=== PATIENT | female | born 1975 | race Caucasian/White ===

== ENCOUNTER → 2019-10-13 | Outpatient (CLI) | payer MEDICAID, OTHER | LOC: M OUTALCOH 08:20 | PROVIDERS: ATTEND Psychiatry & Neurology Addiction Medicine | DX: Z03.89 Encounter for observation for other suspected diseases and conditions ruled out (principal) ==

== ENCOUNTER 2019-11-11 09:59 | Outpatient (RCR) | payer MEDICAID | END 2019-11-27 | LOC: M OUTALCOH 09:59 | PROVIDERS: ATTEND Psychiatry & Neurology Addiction Medicine | DX: Z03.89 Encounter for observation for other suspected diseases and conditions ruled out (principal); Z72.0 Tobacco use ==

== ENCOUNTER → 2021-07-19 | Outpatient (CLI) | payer OTHER ==
[~2021-07-19] MED LIST: ISOVUE-370 76% 100ML VIAL As Ordered ONE
== END ==
LOC: M RADPRO 11:12
PROVIDERS: ATTEND Obstetrics & Gynecology
DX: N97.9 Female infertility, unspecified (principal)
CPT/HCPCS: 58340; 74740; Q9967

== ENCOUNTER → 2022-03-01 | Outpatient (REF) | payer OTHER ==
[2022-03-01 22:33] LABS: APPEARANCE, URINE MANUAL HAZY (CLEAR); COLOR, URINE MANUAL YELLOW (YELLOW)
[2022-03-01 22:34] LABS: BILIRUBIN, URINE MANUAL NEGATIVE (NEGATIVE); BLOOD URINE MANUAL TRACE (NEGATIVE); GLUCOSE, URINE (UA) MANUAL NEGATIVE (NEGATIVE); KETONE, URINE MANUAL NEGATIVE (NEGATIVE); LEUKOCYTE ESTERASE, URINE MAN POSITIVE (NEGATIVE); NITRITE, URINE MANUAL NEGATIVE (NEGATIVE); PROTEIN, URINE MANUAL NEGATIVE (NEGATIVE); UROBILINOGEN, URINE MANUAL NORMAL (NORMAL)
[2022-03-01 22:44] LABS: BACTERIA, URINE LARGE AMOUNT; RBC, URINE 15-20 /hpf (0-3); SQUAMOUS EPITHELIAL CELL URINE LARGE AMOUNT /hpf (SMALL AMT); WBC, URINE TNTC /hpf (0-3)
[2022-03-01 22:45] LABS: MUCUS, URINE MOD AMOUNT (NEGATIVE)
[2022-03-01 22:46] LABS: HYALINE CAST, URINE NONE SEEN /lpf (0-1)
== END ==
LOC: M LAB REF 22:24
PROVIDERS: ATTEND Physician Assistant Medical
DX: N39.0 Urinary tract infection, site not specified (principal)

== ENCOUNTER → 2022-03-26 | Outpatient (REF) | payer OTHER | LOC: M LAB REF 22:04 | PROVIDERS: ATTEND Physician Assistant Medical | DX: J02.9 Acute pharyngitis, unspecified (principal) ==

== ENCOUNTER 2022-08-23 03:05 | Inpatient (IN) | payer OTHER ==
[~2022-08-23] VITALS: Ht 162.6 cm; Wt 65.0 kg
[2022-08-23] MEDS ORDERED: CHARCOAL ACTIVATED LIQUID 25GM/120ML BTL PO ONE (04:00)
[2022-08-23 05:41] LABS: BASO # 0.1 10^3/uL (0.0-0.2); BASO % 0.7 % (0.0-1.0); EOS # 0.1 10^3/uL (0.0-0.5); HEMATOCRIT 36.7 % (36.0-47.0); HEMOGLOBIN 12.5 g/dl (12.0-15.5); LYMPH # 2.9 10^3/uL (1.5-5.0); LYMPH % 26.6 % (24.0-44.0); MEAN CORPUSCULAR HEMOGLOBIN 31.8 pg (27.0-33.0); MEAN CORPUSCULAR HGB CONC 34.1 g/dl (32.0-36.5); MEAN CORPUSCULAR VOLUME 93.4 fl (80.0-96.0); MONO # 0.7 10^3/uL (0.0-0.8); MONO % 6.7 % (2.0-8.0); NEUTROPHILS # 6.9 10^3/uL (1.5-8.5); NEUTROPHILS % 64.7 % (36.0-66.0); PLATELET COUNT, AUTOMATED 224 10^3/uL (150-450); RED BLOOD COUNT 3.93 10^6/uL (4.00-5.40); WHITE BLOOD COUNT 10.7 10^3/uL (4.0-10.0)
[2022-08-23 06:08] LABS: ETHYL ALCOHOL (ETHANOL) 0.003 % (0.000-0.010)
[2022-08-23 06:09] LABS: ACETAMINOPHEN LEVEL < 2.0 UG/ML (10.0-20.0); CPK CREATINE PHOSPHOKINASE 110 U/L (34-145); SALICYLATE LEVEL < 3.0 MG/DL (<30)
[2022-08-23 06:10] LABS: ALBUMIN 3.9 G/DL (3.2-5.2); ALKALINE PHOSPHATASE 46 U/L (46-116); ALT/SGPT 15 U/L (7.0-40); AST/SGOT 18 U/L (<34); BILIRUBIN,DIRECT 0.2 MG/DL (<0.4); BILIRUBIN,TOTAL 0.6 MG/DL (0.3-1.2); BLOOD UREA NITROGEN 9 MG/DL (9-23); CALCIUM LEVEL 9.3 MG/DL (8.5-10.1); CARBON DIOXIDE LEVEL 25 MMOL/L (20-31); CHLORIDE LEVEL 105 MMOL/L (98-107); CREATININE FOR GFR 0.62 MG/DL (0.55-1.30); GLOMERULAR FILTRATION RATE > 60.0 (>58); GLUCOSE, FASTING 103 MG/DL (60-100); POTASSIUM SERUM 3.4 MMOL/L (3.5-5.1); SODIUM LEVEL 141 MMOL/L (136-145); TOTAL PROTEIN 6.9 G/DL (5.7-8.2)
[2022-08-23 06:11] LABS: HCG, SERUM QUALITATIVE NEGATIVE (NEGATIVE); THYROID STIMULATING HORMONE 1.068 uIU/ML (0.55-4.78)
[2022-08-23] MEDS ORDERED: NS 1,000 ML IV ONE ×2 (06:20→07:40)
[2022-08-23 08:46] LABS: BARBITURATES URINE NEGATIVE (NEGATIVE); CANNABINOIDS URINE NEGATIVE (NEGATIVE); METHADONE URINE NEGATIVE (NEGATIVE); OPIATES URINE NEGATIVE (NEGATIVE); PHENCYCLIDINE URINE NEGATIVE (NEGATIVE)
[2022-08-23 08:47] LABS: AMPHETAMINES LEVEL URINE POSITIVE (NEGATIVE); BENZODIAZEPINES URINE POSITIVE (NEGATIVE); COCAINE METABOLITE URINE POSITIVE (NEGATIVE)
[2022-08-23] MEDS: NICOTINE 21MG/24HR 1 EA TRANSDERMAL TD SCH (09:00)
[2022-08-23] MEDS ORDERED: NICOTINE 21MG/24HR 1 EA TRANSDERMAL TD ONE (10:50)
[2022-08-23] MEDS ORDERED: MOM 30ML SUSPENSION UDC PO PRN (11:20)
[2022-08-23] MEDS ORDERED: MAALOX 30 ML SUSP *UDC PO PRN (11:20)
[2022-08-23] MEDS ORDERED: ACETAMINOPHEN TAB 650MG DOSE (2X325MG) PO PRN (11:20)
[2022-08-23] MEDS ORDERED: ZINC100T3 PO (12:45)
[2022-08-23] MEDS ORDERED: ALPR0.5T3 PO (12:45)
[2022-08-23] MEDS ORDERED: FERR1TAB8 PO (12:45)
[2022-08-23] MEDS ORDERED: VITMTA PO (12:45)
[2022-08-23] MEDS ORDERED: BIOT1CAP2 PO (12:45)
[2022-08-23] MEDS ORDERED: VITA100093 PO (12:45)
[2022-08-23] MEDS ORDERED: L-CA500T PO (12:45)
[2022-08-23] MEDS ORDERED: HOME MED LIST COMPLETE! XX SCH (12:50)
[2022-08-23 15:25] VITALS: BP 123/75
[2022-08-23] MEDS: traZODone 50 MG TAB PO PRN (21:34)
[2022-08-24 06:43] VITALS: BP 109/56
[2022-08-24] MEDS: NICOTINE 21MG/24HR 1 EA TRANSDERMAL TD SCH (08:21)
[2022-08-24] MEDS ORDERED: ONDANSETRON 4MG TAB PO PRN (12:35)
[2022-08-24 16:15] VITALS: BP 108/56
[2022-08-24] MEDS ORDERED: FLEET ENEMA PR ONE (16:30)
[2022-08-24] MEDS: traZODone 50 MG TAB PO PRN (20:07)
[2022-08-24] MEDS: PRAZOSIN 1 MG CAP PO SCH (20:08)
[2022-08-25] MEDS: diphenhydrAMINE 25MG CAP PO PRN ×2 (01:44→22:13)
[2022-08-25 06:24] VITALS: BP 88/52
[2022-08-25] MEDS: NICOTINE 21MG/24HR 1 EA TRANSDERMAL TD SCH (07:20)
[2022-08-25] MEDS ORDERED: traZODone 25MG PER 1/2 TABLET PO PRN (08:00)
[2022-08-25] MEDS: IBUPROFEN 400MG TAB PO PRN ×2 (08:04→15:26)
[2022-08-25] MEDS: busPIRone 10 MG TAB PO SCH ×2 (09:12→20:56)
[2022-08-25 16:13] VITALS: BP 118/58
[2022-08-25] MEDS: PRAZOSIN 1 MG CAP PO SCH (20:56)
[2022-08-26 06:16] VITALS: BP 118/59
[2022-08-26] MEDS: diphenhydrAMINE 25MG CAP PO PRN ×3 (07:01→20:34)
[2022-08-26] MEDS: NICOTINE 21MG/24HR 1 EA TRANSDERMAL TD SCH (08:04)
[2022-08-26] MEDS: busPIRone 10 MG TAB PO SCH ×2 (08:04→20:33)
[2022-08-26] MEDS: IBUPROFEN 400MG TAB PO PRN (08:04)
[2022-08-26] MEDS: FLUTICASONE PROP 0.05% NASAL SPRAY 16 GM (FLONASE) NARES SCH ×2 (14:33→20:33)
[2022-08-26] MEDS ORDERED: ARIPiprazole 10 MG TAB PO SCH (15:00)
[2022-08-26 15:50] VITALS: BP 139/69
[2022-08-26 20:33] VITALS: BP 139/69
[2022-08-26] MEDS: PRAZOSIN 1 MG CAP PO SCH (20:33)
[2022-08-27 06:18] VITALS: BP 119/62
[2022-08-27] MEDS ORDERED: BUSP10TA PO (08:00)
[2022-08-27] MEDS ORDERED: FLUT50SP17 NARES (08:00)
[2022-08-27] MEDS ORDERED: MINI1CAP PO (08:00)
[2022-08-27] MEDS ORDERED: NICO21PAT TD (08:00)
[2022-08-27] MEDS ORDERED: TRAZ-252 PO (08:00)
[2022-08-27] MEDS ORDERED: ABIL10TA9 PO (08:00)
[2022-08-27] MEDS: busPIRone 10 MG TAB PO SCH (08:11)
[2022-08-27] MEDS: FLUTICASONE PROP 0.05% NASAL SPRAY 16 GM (FLONASE) NARES SCH (08:11)
[2022-08-27] MEDS: NICOTINE 21MG/24HR 1 EA TRANSDERMAL TD SCH (08:14)
[2022-08-27] MEDS: IBUPROFEN 400MG TAB PO PRN (10:26)
== END 2022-08-27 12:09 | disposition home or self-care (01) | DRG 885 ==
LOC: M ED 03:05 → EDBD 03:05 → M ED INP 11:20 → M PSY 15:33
PROVIDERS: ADMIT Psychiatry & Neurology Psychiatry; ATTEND Student in an Organized Health Care Education/Training Program
DX: F31.0 Bipolar disorder, current episode hypomanic (principal); F43.10 Post-traumatic stress disorder, unspecified; F60.89 Other specific personality disorders; F60.3 Borderline personality disorder; F10.10 Alcohol abuse, uncomplicated; F90.9 Attention-deficit hyperactivity disorder, unspecified type; F14.90 Cocaine use, unspecified, uncomplicated; Z91.410 Personal history of adult physical and sexual abuse; Z79.899 Other long term (current) drug therapy; F17.290 Nicotine dependence, other tobacco product, uncomplicated

== ENCOUNTER → 2023-03-26 | Outpatient (CLI) | payer OTHER ==
[~2023-03-26] MED LIST changes: +ABIL10TA9 PO; +ALPR0.5T3 PO; +BIOT1CAP2 PO; +BUSP10TA PO; +FERR1TAB8 PO; +FLUT50SP17 NARES; -ISOVUE-370 76% 100ML VIAL As Ordered ONE; +L-CA500T PO; +MINI1CAP PO; +NICO21PAT TD; +TRAZ-252 PO; +VITA100093 PO; +VITMTA PO; +ZINC100T3 PO
== END ==
LOC: M WHC 02-28 14:04
PROVIDERS: ATTEND Obstetrics & Gynecology
DX: Z12.31 Encounter for screening mammogram for malignant neoplasm of breast (principal)

== ENCOUNTER → 2023-10-03 | Outpatient (REF) | payer OTHER ==
[~2023-10-03] MED LIST changes: -FLUT50SP17 NARES; +FLUTISP NARES
[2023-10-03 17:12] LABS: IRON (FE) 121 UG/DL (50-170); PERCENT SATURATION 32.3 % (13.2-45.0); TOTAL IRON BINDING CAPACITY 375 UG/DL (250-425)
[2023-10-03 17:14] LABS: FERRITIN 54.7 NG/ML (7.3-270.7)
== END ==
LOC: M LAB REF 16:19
PROVIDERS: ATTEND Nurse Practitioner Family
DX: E61.1 Iron deficiency (principal); R53.83 Other fatigue; Z11.9 Encounter for screening for infectious and parasitic diseases, unspecified

== ENCOUNTER → 2023-12-19 | Day surgery (SDC) | payer OTHER ==
[~2023-12-19] VITALS: Ht 162.6 cm; Wt 59.9 kg
[~2023-12-19] MED LIST changes: +AZEL1SPR3; +BUPR-597 PO; +BUPR15TASR PO; +CETI-24 PO; +HYDR-643 PO; +IPRA3SP; +NORE1TAB7 PO; +OMEP-173 PO; +XANA0.25 PO; +propofoL 200 MG/20 ML VIAL As Ordered ONE
[2023-12-19] MEDS: NS 1,000 ML IV ONE (10:05)
[2023-12-19 11:12] VITALS: TEMP 97.7
[2023-12-19 11:29] VITALS: BP 138/60; O2SAT 99
== END | disposition home or self-care (01) ==
LOC: M OPP 09:21
PROVIDERS: ATTEND Surgery
DX: K63.5 Polyp of colon (principal); K59.00 Constipation, unspecified; F17.290 Nicotine dependence, other tobacco product, uncomplicated; Z79.1 Long term (current) use of non-steroidal anti-inflammatories (NSAID); Z79.51 Long term (current) use of inhaled steroids; Z79.52 Long term (current) use of systemic steroids; Z79.899 Other long term (current) drug therapy

== ENCOUNTER → 2024-02-06 | Outpatient (CLI) | payer OTHER ==
[~2024-02-06] MED LIST changes: -propofoL 200 MG/20 ML VIAL As Ordered ONE
== END ==
LOC: M PLAIMG 09:36
PROVIDERS: ATTEND Nurse Practitioner Family
DX: S99.922A Unspecified injury of left foot, initial encounter (principal); X58.XXXA Exposure to other specified factors, initial encounter; Y92.9 Unspecified place or not applicable

== ENCOUNTER → 2025-01-22 | Outpatient (CLI) | payer OTHER ==
[~2025-01-22] MED LIST changes: -BUPR-597 PO; +BUPR-766 PO; -L-CA500T PO; +L-CA500T6 PO
== END ==
LOC: M RAD 12:04
PROVIDERS: ATTEND Nurse Practitioner Family
DX: R22.9 Localized swelling, mass and lump, unspecified (principal)

== ENCOUNTER 2025-02-14 00:31 | Emergency (ER) | payer OTHER ==
[2025-02-14 01:49] LABS: PLATELET COUNT, AUTOMATED 262 10^3/uL (150-450)
[2025-02-14 02:11] LABS: AMPHETAMINES LEVEL URINE NEGATIVE (NEGATIVE); BARBITURATES URINE NEGATIVE (NEGATIVE); BENZODIAZEPINES URINE NEGATIVE (NEGATIVE); CANNABINOIDS URINE NEGATIVE (NEGATIVE); COCAINE METABOLITE URINE NEGATIVE (NEGATIVE); METHADONE URINE NEGATIVE (NEGATIVE); OPIATES URINE NEGATIVE (NEGATIVE); PHENCYCLIDINE URINE NEGATIVE (NEGATIVE)
[2025-02-14 02:13] LABS: ETHYL ALCOHOL (ETHANOL) 0.006 % (0.000-0.010)
[2025-02-14 02:15] LABS: ALT/SGPT 34 U/L (7.0-40); AST/SGOT 44 U/L (<34); CALCIUM LEVEL 9.7 MG/DL (8.5-10.1); CARBON DIOXIDE LEVEL 21 MMOL/L (20-31); CHLORIDE LEVEL 106 MMOL/L (98-107); CREATININE FOR GFR 0.78 MG/DL (0.55-1.30); GLOMERULAR FILTRATION RATE > 90.0 (>58); POTASSIUM SERUM 4.7 MMOL/L (3.5-5.1); SALICYLATE LEVEL < 3.0 MG/DL (<30); SODIUM LEVEL 141 MMOL/L (136-145)
[2025-02-14] MEDS ORDERED: ADDE1TAB14 PO (06:01)
[2025-02-14] MEDS ORDERED: AMPH1CAP9 PO (06:01)
[2025-02-14] MEDS ORDERED: FLUT15.820 NARES (06:02)
[2025-02-14] MEDS ORDERED: CLONI1TA PO (06:08)
[2025-02-14] MEDS ORDERED: HOME MED LIST COMPLETE! XX SCH (06:10)
[2025-02-14 09:12] VITALS: BP 136/79; TEMP 97.9; O2SAT 99
== END 2025-02-14 09:13 | disposition home or self-care (01) ==
LOC: M ED 00:31
DX: F43.0 Acute stress reaction (principal); F32.A Depression, unspecified; F17.200 Nicotine dependence, unspecified, uncomplicated; Z79.899 Other long term (current) drug therapy